=== PATIENT | female | born 1960 | race Hispanic/Latino ===

== ENCOUNTER → 2018-12-13 | Outpatient (CLI) | payer BC ==
--- NOTE | 2018-12-13 17:04 | Diagnostic Imaging Report ---
EXAMINATION: CHEST 2 VIEWS INDICATION: Cough, Bronchitis COMPARISON: None FINDINGS: LINES/TUBES:None LUNGS:The lungs are well-inflated. Airspace opacity at the left lung base silhouettes the left hemidiaphragm. No right lung consolidation. No pulmonary edema. PLEURA:Layering left pleural effusion. No pneumothorax. MEDIASTINUM:The cardiomediastinal silhouette appears normal in size and shape. BONES/SOFT TISSUES:No acute osseous injury. ABDOMEN:No free air under the diaphragm. IMPRESSION: Left basilar airspace opacity may represent subsegmental atelectasis or superimposed aspiration or pneumonia. Layering left pleural effusion. RECOMMENDATIONS: Follow-up chest radiograph in 6-8 weeks to assess for resolution. Signed by: Kyle Xavier MD on 12/13/2018 5:01 PM
== END ==
LOC: RAD 16:36
PROVIDERS: ATTEND Family Medicine
DX: J40 Bronchitis, not specified as acute or chronic (principal)
CPT/HCPCS: 71046

== ENCOUNTER → 2018-12-19 | Outpatient (CLI) | payer BC ==
--- NOTE | 2018-12-19 15:53 | Diagnostic Imaging Report ---
EXAMINATION: CHEST 2 VIEWS INDICATION: Bronchitis COMPARISON: Chest radiograph of 12/13/2018 FINDINGS: LINES/TUBES:None LUNGS:The right lung is well inflated. The left lung volume is low. Consolidative opacity of the left lower lung. PLEURA:Moderate left pleural effusion, increased from 12/13/2018. No pneumothorax. MEDIASTINUM:The cardiomediastinal silhouette appears unchanged in size and shape. BONES/SOFT TISSUES:No acute osseous injury. ABDOMEN:No free air under the diaphragm. IMPRESSION: Interval increase in left pleural effusion. Left lung base airspace opacity could represent associated subsegmental atelectasis or alternatively superimposed aspiration or pneumonia in the proper clinical setting. Signed by: Kyle Xavier MD on 12/19/2018 3:49 PM
== END ==
LOC: RAD 14:56
PROVIDERS: ATTEND Family Medicine
DX: J40 Bronchitis, not specified as acute or chronic (principal)
CPT/HCPCS: 71046